=== PATIENT | male | born 1955 | race Caucasian/White ===

== ENCOUNTER 2023-08-12 12:15 | Outpatient (CLI) | payer MEDICARE, SELFPAY ==
--- NOTE | ~2023-08-12 | XR_ITS ---
Clinical Indication: Cough PA and lateral views of the chest: Comparison: 11/27/2016 Findings: The lungs are clear, without evidence of focal consolidation or pleural effusion. Stable ca lcified right hilar lymph nodes. Cardiomediastinal silhouette is within normal limits. Bones and soft tissues are unremarkable. Impression: Clear lungs. Stable calcified right hilar lymph nodes. Reviewed, dictated and finalized at location M. [employer] COUNSE[employer]OR Impression: Clear lungs. Stable calcified right hilar lymph nodes.
== END 2023-08-12 12:16 | disposition home or self-care (01) ==
PROVIDERS: PCP Physician Assistant; Visit Provider Physician Assistant
DX: I89.8 Other specified noninfective disorders of lymphatic vessels and lymph nodes (principal); R05.9 Cough, unspecified
CPT/HCPCS: 71046